=== PATIENT | male | born 1945 | race Caucasian/White ===

== ENCOUNTER → 2018-07-25 | Outpatient (REF) | payer MEDICARE ==
[~2018-07-25] MED LIST: LEVOTHYROXIN75 MCG PO; LISINOPRIL10 MG PO; MELOXICAM15 MG PO; MORPHINE SUL30 M3 PO
== END | disposition home or self-care (01) ==
LOC: ULTRASND 09:07
PROVIDERS: ATTEND Internal Medicine Gastroenterology
DX: R18.8 Other ascites (principal); K74.60 Unspecified cirrhosis of liver; K64.8 Other hemorrhoids; K57.30 Diverticulosis of large intestine without perforation or abscess without bleeding; K76.89 Other specified diseases of liver; K80.20 Calculus of gallbladder without cholecystitis without obstruction

== ENCOUNTER 2018-08-15 09:13 | Day surgery (SDC) | payer MEDICARE ==
[~2018-08-15] VITALS: Ht 170.2 cm; Wt 99.8 kg
[~2018-08-15 09:13] MED LIST changes: +AMLODIPINE5 MG PO; +LEVOTHYROXIN50 MCG PO; -LEVOTHYROXIN75 MCG PO; +PROPRANOLOL HCL20 MG PO; +PROTONIX40 M2 PO; +TAMSULOSIN0.4 MG PO
[2018-08-15 14:08] VITALS: BP 152/62
== END 2018-08-15 14:21 | disposition home or self-care (01) ==
LOC: ENDO 09:13 → ORM 12:55 → ENDO 12:55 → ORM 14:00 → ENDO 14:21
PROVIDERS: ATTEND Internal Medicine Gastroenterology
PROC: 06L38CZ Occlusion of Esophageal Vein with Extraluminal Device, Via Natural or Artificial Opening Endoscopic (ICD-10-PCS; principal; 2018-08-15)
PROC: 0DB78ZX Excision of Stomach, Pylorus, Via Natural or Artificial Opening Endoscopic, Diagnostic (ICD-10-PCS; 2018-08-15)
DX: K74.60 Unspecified cirrhosis of liver (principal); I85.10 Secondary esophageal varices without bleeding; B18.2 Chronic viral hepatitis C; R18.8 Other ascites; F10.10 Alcohol abuse, uncomplicated; K76.89 Other specified diseases of liver; K29.50 Unspecified chronic gastritis without bleeding; Q40.8 Other specified congenital malformations of upper alimentary tract; K44.9 Diaphragmatic hernia without obstruction or gangrene; K57.30 Diverticulosis of large intestine without perforation or abscess without bleeding; Q27.33 Arteriovenous malformation of digestive system vessel

== ENCOUNTER 2019-01-09 14:53 | Emergency (ER) | payer MEDICARE ==
[~2019-01-09] VITALS: Ht 170.2 cm; Wt 105.0 kg
[~2019-01-09 14:53] MED LIST changes: +NOVOLO1 SC
[2019-01-09 16:05] LABS: HEMATOCRIT 35.3 % (39.0-50.0); MEAN CELL VOLUME 108.6 fL CALC (80.0-100.0); MEAN CORPUSCULAR HGB 36.9 pG CALC (26.0-32.0); NEUT# 1.6 thou/uL (1.82-7.42); RED BLOOD COUNT 3.25 mill/uL (4.70-6.10); RED CELL DISTRI WIDTH 14.6 % (11.5-15.5)
[2019-01-09 16:21] LABS: ALKALINE PHOSPHATASE 136 u/l (38-126); ANION GAP 9 (6-22 (CALC)); BILIRUBIN, TOTAL 2.2 mg/dL (0.0-1.4); BUN 12 mg/dL (8-23); BUN/CREATININE RATIO 14 (12-20 (CALC)); CARBON DIOXIDE 28 mmol/l (22-30); CHLORIDE 108 mmol/l (95-108); CREATININE 0.9 mg/dL (0.7-1.3); GFR > 60 ML/MIN (>=60 (CALC)); GFR FOR AFR.AMER. > 60 ML/MIN (>=60 (CALC)); POTASSIUM 3.7 mmol/l (3.5-5.1); SGOT/AST 104 u/l (19-48); SODIUM 141 mmol/l (137-146); TOTAL PROTEIN 7.8 g/dL (6.3-8.2)
[2019-01-09 16:28] LABS: LIPASE 7759 u/l (23-300)
[2019-01-09 20:59] VITALS: BP 124/72
== END 2019-01-09 21:12 | disposition short-term general hospital (02) ==
LOC: ED 14:53
PROVIDERS: Emergency Medicine
DX: K85.90 Acute pancreatitis without necrosis or infection, unspecified (principal); K76.6 Portal hypertension; K74.60 Unspecified cirrhosis of liver; R18.8 Other ascites; K80.20 Calculus of gallbladder without cholecystitis without obstruction; R10.84 Generalized abdominal pain; R11.2 Nausea with vomiting, unspecified; F17.200 Nicotine dependence, unspecified, uncomplicated; R16.1 Splenomegaly, not elsewhere classified
CPT/HCPCS: Q9967

== ENCOUNTER 2019-05-27 02:29 | Emergency (ER) | payer MEDICARE ==
[~2019-05-27] VITALS: Ht 170.2 cm; Wt 95.9 kg
[~2019-05-27 02:29] MED LIST changes: +INDERAL 20MG TA20 MG PO; +MELOXICAM7.5 MG PO; +NOVOLIN 70/30 RELION SC; +PANTOPRAZOLE SO40 MG PO; +TAMSULOSIN HCL0.4 MG PO
[2019-05-27 03:34] LABS: HEMATOCRIT 32.3 % (39.0-50.0); HEMOGLOBIN 10.7 g/dl (14.0-18.0); IMMATURE GRANULOCYTES 0.4 % (0.0-5.0); MEAN CELL VOLUME 109.9 fL CALC (80.0-100.0); MEAN CORPUSCULAR HGB 36.4 pG CALC (26.0-32.0); MEAN CORPUSCULAR HGB CONC 33.1 g/L CALC (32.0-36.0); NEUT# 1.91 thou/uL (1.82-7.42); RED BLOOD COUNT 2.94 mill/uL (4.70-6.10); RED CELL DISTRI WIDTH 16.4 % (11.5-15.5)
[2019-05-27 03:44] LABS: ALBUMIN 2.8 g/dL (3.2-5.0); CREATININE 1.4 mg/dL (0.7-1.3); POTASSIUM 4.1 mmol/l (3.5-5.1); TOTAL PROTEIN 8.5 g/dL (6.3-8.2)
[2019-05-27 03:58] LABS: BILIRUBIN, TOTAL 3.1 mg/dL (0.0-1.4)
[2019-05-27 04:50] LABS: INTERNATIONAL NORMALIZED RATIO 1.3 RATIO (0.7-1.3); PROTHROMBIN TIME 13.6 SECONDS (9.0-12.5)
[2019-05-27 07:57] VITALS: BP 117/67
== END 2019-05-27 07:57 | disposition other institution (70) ==
LOC: ED 02:29
PROVIDERS: Emergency Medicine
DX: K74.60 Unspecified cirrhosis of liver (principal); K76.6 Portal hypertension; K80.20 Calculus of gallbladder without cholecystitis without obstruction; K85.90 Acute pancreatitis without necrosis or infection, unspecified; B19.20 Unspecified viral hepatitis C without hepatic coma; E11.9 Type 2 diabetes mellitus without complications; I10 Essential (primary) hypertension; F17.210 Nicotine dependence, cigarettes, uncomplicated; Z79.4 Long term (current) use of insulin